=== PATIENT | male | born 1960 | race Caucasian/White ===

== ENCOUNTER 2025-08-04 09:23 | Day surgery (SDC) | payer MEDICARE, BC, SELFPAY ==
--- NOTE | 2025-07-29 14:46 | SUR.PREOP ---
left pt message with callback number, will retry again on friday to preop patient
[2025-07-29 15:48] VITALS: BMI 29.7
--- NOTE | 2025-08-02 17:31 | P.HP_ITS ---
History of Present Illness *Admission Date: 08/04/25 *History of present illness: Mr. De Souza is a 65-year-old gentleman who is here for high risk screening colonoscopy secondary to a personal history of colon cancer, family history of colon cancer and a personal history of advanced adenomatous polyps. The patient did have a colonoscopy at the age of 39 (26 years ago) and had colon cancer and underwent right hemicolectomy. His colonoscopy in January 2004 was normal. His colonoscopy in February 2007 revealed a single polyp (tubular adenoma) which was removed. His colonoscopy in May 2017 showed a large pedunculated sigmoid polyp (tubulovillous adenoma with high-grade dysplasia) and 4 additional polyps (small serrated adenomas) which were removed. His colonoscopy in July 2019 revealed 3 polyps (1 of which was a laterally spreading 28 mm adenoma) which was removed. His colonoscopy in April 2021 revealed 5 polyps (the largest of which was 10 mm and all were adenomatous). His last colonoscopy in March 2023 revealed a single 6 mm transverse polyp (small serrated adenoma) which was removed. The patient does state that his maternal uncle, maternal great uncle and 2 maternal first cousins had colon cancer. I did identify a prostate nodule in April 2021 and the patient has been followed with urology (Bert Gan MD) and PSA has been mildly elevated. The examination is deemed medically necessary for screening/surveillance colonoscopy. The patient has been seen, interviewed and examined prior to the procedure by both myself and the anesthesia provider. [facility] Disclaimer: The information contained in this section may have been updated after the patient was seen, as this information can be updated by other users. Medical History (Updated 08/02/25 @ 17:36 by Jovanny Shrestha II, MD) Asthma Psoriasis History of cataract Colon cancer Surgical History (Updated 07/29/25 @ 15:47 by Mirtha Rdz RN) H/O removal of cyst Family History (Updated 07/29/25 @ 15:47 by Mirtha Rdz RN) Other No significant family history Social History (Updated 08/04/25 @ 10:05 by Khadar Multani CRNA) Smoking Status: Never smoker alcohol intake: never substance use type: denies use current occupational status: employed Travel in the last 8 weeks?: None Have you lived/traveled outside [place] in past 30 days?: No Contact w/someone who lives/traveled outside [place] past 30 days?: No Exposure to someone with infectious disease in past 14 days?: No Do you have a fever (greater than 100.4 F or 38 C)?: No Have you tested positive for COVID-19?: No Exposed to someone with COVID-19 in past 14 days?: No Do you have a sore throat?: No Do you have a cough?: No Do you have any weakness?: No Are you experiencing any nausea/vomitting?: No Do you have any diarrhea?: No Are you experiencing any unusual bleeding?: No Do you have any muscle aches/pain?: No Do you have any abdominal pain?: No Are you experiencing loss of taste or smell?: No Review of Systems Review of Systems Review of systems (narrative): Negative *Cardiovascular Comments: Negative *Gastrointestinal Comments: Negative *Genitourinary Comments: Negative *Musculoskeletal Comments: Negative *Neurologic Comments: Negative Meds Home Medications and Allergies Home Medications ?Medication ?Instructions ?Recorded ?Confirmed ?Type sodium sul 1.479 gram-potas ch See Rx Instructions PO PER PKG DIR 07/21/25 Rx 0.188 gram-magnes sul 0.225 gram colonscopy #24 tabs tablet (Sutab) aspirin 81 mg tablet 81 mg PO DAILY 07/29/25 09/0 04/17 History calcium phosphate,dibasic 77 1 tab PO DAILY 07/29/25 0 07/29/25 History mg-vitamin D3 400 unit tablet New Prescriptions to Start Prescriptions: Allergies Allergy/AdvReac Type Severity Reaction Status Date / Time No Known Allergies Allergy Verified 07/29/25 15:48 Exam *Routine HEENT Exam Head: Present normocephalic Eye: Present EOMI and PERRL ENT: Present mucous membranes moist *Routine Neck Exam Neck: Present supple *Routine Respiratory Exam Respiratory: Present CTA bilaterally *Routine Cardiovascular Exam Cardiovascular: Present RRR *Routine Abdominal Exam Abdominal: Present soft and normoactive bowel sounds; Absent tenderness *Routine Rectal Exam Rectal:: deferred *Routine Genitalia Exam Genitalia:: deferred *Routine Extremities Exam Extremities: Absent cyanosis, clubbing or edema *Routine Skin Exam Skin: Present warm; Absent rash *Routine Neurological Exam Neurological: Present alert and oriented X3 Assessment and Plan *Assessment and plan (1) Personal history of adenomatous and serrated colon polyps: Status: Acute Category: Medical Code(s): Z86.0101 - Personal history of adenomatous and serrated colon polyps (2) Personal history of colon cancer: Status: Acute Category: Medical Code(s): Z85.038 - Personal history of other malignant neoplasm of large intestine (3) Family history of colon cancer: Status: Acute Category: Medical Code(s): Z80.0 - Family history of malignant neoplasm of digestive organs Plan A/P: 1. Personal history of colon cancer and personal history of advanced adenomatous colon polyps is the preprocedural diagnosis. The patient also has a strong family history of colon cancer. The patient will be anesthetized/sedated using MAC sedation. The patient has been seen and examined. Cardiac and lung assessment prior to the examination is stable. Proceed with planned screening/surveillance colonoscopy.
[2025-08-04] MEDS: LACTATED RINGERS 1000ML 1,000 ML 50 ML IV (09:39)
[2025-08-04 09:40] VITALS: BP 139/93; PULSE 95; RESP 18; TEMP 36.5; O2SAT 96
--- NOTE | 2025-08-04 10:04 | EXP.ANES.CKL ---
[facility] Disclaimer: The information contained in this section may have been updated after the patient was seen, as this information can be updated by other users. Medical History (Updated 08/02/25 @ 17:36 by Jovanny Shrestha II, MD) Asthma Psoriasis History of cataract Colon cancer Surgical History (Updated 07/29/25 @ 15:47 by Mirtha Rdz, LIAM) H/O removal of cyst Family History (Updated 07/29/25 @ 15:47 by Mirtha Rdz, RN) Other No significant family history Social History (Updated 07/29/25 @ 15:48 by Mirtha Rdz RN) Smoking Status: Never smoker alcohol intake: never substance use type: denies use current occupational status: employed Travel in the last 8 weeks?: None [facility] Anesthesia Checklist Patient Identification Patient Identification: Arm Band and Verbal (Name & ) Structural Data Admitted From: Home Planned Operative Procedure/s: Colonoscopy Consent for Planned Operative Procedure(s) Verified: Yes Verified Documents: Surgical Consent NPO Status Verified Time NPO: 00:00 Chart Verification Results Verified: None Additional verifications Anesthesia Reactions: No Airway Assessment Mallampati Score:: Class II C-Spine Mobility Assessed: Yes TMJ Mobility Assessed: Yes Dentition: Good Dentition Neurological Assessment Level of Consciousness: Awake, Alert and Appropriate Hx Seizures: No Numbness or tingling in extremities: No Anesthesia Plan Anesthesia Risk discussed: Yes Anesthesia Plan: Verified ASA Class: I Anesthesia Type: MAC
--- NOTE | 2025-08-04 11:04 | HMH.PROCNOTE ---
[facility] Procedure Note Date: 08/04/25 Time: 11:28 Procedure Note:: Colonoscopy Procedure Report: Colonoscopy with cold snare polypectomy Endoscopist: Jovanny Shrestha II, MD Referring physician: None Date of Procedure: August 04, 2025 Equipment: Olympus [id number] adult colonoscope Sedation: MAC sedation Indication: Mr. De Souza is a 65-year-old gentleman who is here for high risk screening colonoscopy secondary to a personal history of colon cancer, family history of colon cancer and a personal history of advanced adenomatous polyps. The patient did have a colonoscopy at the age of 39 (26 years ago) and had colon cancer and underwent right hemicolectomy. His colonoscopy in January 2004 was normal. His colonoscopy in February 2007 revealed a single polyp (tubular adenoma) which was removed. His colonoscopy in May 2017 showed a large pedunculated sigmoid polyp (tubulovillous adenoma with high-grade dysplasia) and 4 additional polyps (small serrated adenomas) which were removed. His colonoscopy in July 2019 revealed 3 polyps (1 of which was a laterally spreading 28 mm adenoma) which was removed. His colonoscopy in April 2021 revealed 5 polyps (the largest of which was 10 mm and all were adenomatous). His last colonoscopy in March 2023 revealed a single 6 mm transverse polyp (small serrated adenoma) which was removed. The patient does state that his maternal uncle, maternal great uncle and 2 maternal first cousins had colon cancer. I did identify a prostate nodule in April 2021 and the patient has been followed with urology (Bert Gan MD) and PSA has been mildly elevated. The examination is deemed medically necessary for screening/surveillance colonoscopy. Procedure: Prior to the procedure, a history and physical exam was performed, and patient's medications and allergies were reviewed. The risks, benefits and alternatives of the sedation and procedure were discussed with the patient. All questions were answered and informed consent was obtained. The patient was brought to the procedure room. Patient identification and proposed procedure were verified by the physician and the nurse. The patient was placed in a left lateral decubitus position and the scope was passed under direct vision. Throughout the procedure, the patient's blood pressure, pulse, and oxygen saturations were monitored continuously. The colonoscopy was accomplished without difficulty. The patient tolerated the procedure well. Findings: On digital rectal examination there was normal rectal tone. There was a posterior midline anal tag. There were no external hemorrhoids. The prostate was 2+, mildly firm and symmetric with no discrete prostate nodule. The colonoscope was introduced through the anal canal to the rectum and advanced to the right colon and ileocolonic anastomosis (end-to-side anastomosis). The scope was advanced a short distance into the terminal ileum which appeared normal. The scope was then withdrawn into the colon. There were 3 polyps identified within the colon (descending x 2 (3 and 7 mm) and rectosigmoid x 1 (4 mm)). These were all removed via cold snare polypectomy. The remaining ascending and transverse colon and mucosa were grossly normal. There were scattered diverticuli throughout the descending and sigmoid colon (LEFT colon). The rectum itself was normal. Upon retroflexion within the rectum there were grade 2 internal hemorrhoids. The preparation was excellent throughout with [place] Preparation Score of 9. The cecal time was 14 minutes. Impression: 1. Colonic polyps x 3 2. Left-sided diverticulosis 3. Grade 2 internal hemorrhoids 4. Normal end-to-side ileocolonic anastomosis Plan: I will follow-up the polyp histology and recommend repeat screening/surveillance colonoscopy again in 3 years. I will discuss the findings with the patient and family.
[2025-08-04 11:31] VITALS: BP 93/68; PULSE 80; RESP 16; TEMP 36.8; O2SAT 94
[2025-08-04 11:41] VITALS: BP 92/61; PULSE 71; RESP 17; TEMP 36.8; O2SAT 93
[2025-08-04 11:51] VITALS: BP 96/60; PULSE 67; RESP 17; TEMP 36.8; O2SAT 95
[2025-08-04 12:01] VITALS: BP 120/88; PULSE 74; RESP 18; TEMP 36.8; O2SAT 95
== END 2025-08-04 12:08 | disposition home or self-care (01) ==
PROVIDERS: Visit Provider Internal Medicine Gastroenterology
PROC: 0DJD8ZZ Inspection of Lower Intestinal Tract, Via Natural or Artificial Opening Endoscopic (ICD-10-PCS; CPT 45378; principal; 2025-08-04 11:00)
DX: Z12.11 Encounter for screening for malignant neoplasm of colon (principal); D12.4 Benign neoplasm of descending colon; K57.30 Diverticulosis of large intestine without perforation or abscess without bleeding; K63.5 Polyp of colon; K64.1 Second degree hemorrhoids; J45.909 Unspecified asthma, uncomplicated; L40.9 Psoriasis, unspecified; R97.20 Elevated prostate specific antigen [PSA]; Z79.82 Long term (current) use of aspirin; Z86.0101 Personal history of adenomatous and serrated colon polyps; Z85.038 Personal history of other malignant neoplasm of large intestine; Z80.0 Family history of malignant neoplasm of digestive organs; Z98.0 Intestinal bypass and anastomosis status; Z79.899 Other long term (current) drug therapy
CPT/HCPCS: 45385; J2003; J2704; J7120